=== PATIENT | female | born 2000 | race American Indian/Alaskan Native ===

== ENCOUNTER 2019-04-08 01:25 | Emergency (ER) | payer OTHER, SELFPAY ==
[2019-04-08 01:35] VITALS: BP 121/65; PULSE 98; RESP 16; TEMP 36.7; O2SAT 99; BMI 38.7
--- NOTE | 2019-04-08 01:44 | DI.US.S_ITS ---
PROCEDURE: US PELVIC COMPLETE INDICATIONS: RIGHT PELVIC PAIN TECHNIQUE: Real-time scanning was performed of the pelvic organs, with image documentation. Additional endovaginal scanning was necessary due to incomplete visualization of the adnexal and endometrial structures by transabdominal scanning. COMPARISON: None. FINDINGS: Transabdominal scanning: Limited scanning through the kidneys shows no hydronephrosis. No pathologic free abdominal or pelvic fluid. Endovaginal scanning: Uterus: Uterus is normal in size at 7.6 x 3.6 x 4.3 cm. The endometrium measures 7.6 mm in combined thickness. Ovaries: Right ovary measures 3.0 x 1.9 x 3.4 cm. There is a 1.2 x 1.2 x 1.4 cm mildly complex right adnexal cyst. Left ovary measures 2.8 x 2.0 x 1.6 cm. Left ovary is sonographically normal. IMPRESSION: 1. Uterus is sonographically normal. 2. Left ovary sonographically normal. 3. 1.2 x 1.2 x 1.4 mildly complex left adnexal cyst. Recommend follow ultrasound in 4-6 weeks to ensure resolution. Dictated by: Tonya Crisostomo MD, PhD on 04/08/2019 at 7:48 Approved by: Tonya Crisostomo MD, PhD on 04/08/2019 at 7:50
--- NOTE | 2019-04-08 01:48 | ED_ITS ---
HPI - Abdominal Pain General Chief Complaint: Abdominal Pain Stated Complaint: ABDOMINAL PAIN Time Seen by Provider: 04/08/19 01:28 Source: patient and family Mode of arrival: ambulatory Limitations: no limitations History of Present Illness HPI narrative: 18-year-old female nonsmoker, fully immunized with history of ovarian cyst presents with right lower quadrant pain off and on for the past week which has become much more severe tonight. Her pain is worse with motion and improves with rest. She denies radiation of the pain. She denies associated symptoms such as fever chills nor nausea, vomiting or diarrhea. She has had no dysuria, frequency or urgency. Her last period was the end of February complaint: abdominal pain Onset (ago): day(s) Pain Consistency: intermittent Location: RLQ Severity: moderate Quality: cramping and aching Radiation: none Migration to: no migration Relieving factors: rest Exacerbating factors: movement Associated symptoms: denies other symptoms Related Data Patient : No Home Medications Medication Instructions Recorded Confirmed [ CONTROL] #0 11/02/16 amitriptyline 10 mg OR HS #0 11/02/16 caffeine #0 11/02/16 Previous Rx's Medication Instructions Recorded meloxicam [Mobic] 7.5 mg PO BIDCC PRN #10 tab 11/03/16 prochlorperazine maleate 10 mg PO Q8HP PRN #5 tab 11/03/16 [Compazine] ketorolac 10 mg PO Q6H PRN #14 tab 04/08/19 Allergies Allergy/AdvReac Type Severity Reaction Status Date / Time TAPE Allergy Mild RASH Uncoded 11/28/17 12:23 Review of Systems Constitutional Denies chills, Denies fever(s), Denies lethargy and Denies weakness Eyes Denies change in vision, Denies eye discharge, Denies irritation and Denies loss of vision ENT Ears, Nose, Mouth, and Throat: Denies change in voice, Denies neck pain and Denies sore throat Cardiovascular Denies chest pain, Denies irregular heart rhythm, Denies lightheadedness, Denies palpitations, Denies dyspnea, Denies dyspnea on exertion and Denies orthopnea Respiratory Denies cough, Denies dyspnea, Denies dyspnea on exertion and Denies wheezing Gastrointestinal Gastrointestinal: Reports abdominal pain, Denies change in bowel habits, Denies diarrhea, Denies nausea and Denies vomiting Genitourinary Denies hematuria, Denies flank pain, Denies urinary incontinence and Denies urinary urgency Musculoskeletal Denies neck pain Integumentary/Breasts Denies pruritus, Denies erythema, Denies rash and Denies wounds Neurologic Denies confusion, Denies loss of vision and Denies weakness Psychiatric Denies anxiety, Denies confusion, Denies depression, Denies homicidal ideation and Denies suicidal ideation Endocrine Denies palpitations Hematologic/Lymphatic Denies easy bruising Allergic/Immunologic Denies wheezing PFSH Social History Smoking Status: Never smoker Social History Smoking Status: Never smoker Exam Narrative Exam Narrative: GENERAL: [18] year old patient appears stated age. Well- nourished, well-developed patient, in mild distress. HEAD: Atraumatic. Normocephalic. EYES: Pupils equal round and reactive. Extraocular motions intact. No scleral icterus. No injection or drainage. ENT: Nose without bleeding, purulent drainage. Throat without erythema, tonsillar hypertrophy or exudate. Airway patent. NECK: Trachea midline. Non tender CARDIOVASCULAR: Regular rate and rhythm without murmurs, gallops, or rubs. RESPIRATORY: Clear to auscultation. Breath sounds equal bilaterally. No wheezes, rales, or rhonchi. GASTROINTESTINAL: Abdomen soft, tender to palpation in right lower quadrant, n ondistended. EXTREMITIES: No edema or joint tenderness. BACK: Nontender without deformity or crepitance. No flank tenderness. NEURO: AOx3. SKIN: No rash or erythema of visible areas Initial Vital Signs Initial Vital Signs: Vital Signs Temperature 98.0 F 04/08/19 01:35 Pulse Rate 98 H 04/08/19 01:35 Respiratory Rate 16 04/08/19 01:35 Blood Pressure 121/65 04/08/19 01:35 Pulse Oximetry 99 04/08/19 01:35 Course Orders Ordered: ED Orders 04/08/19 01:33 Urine Microscopic Stat 04/08/19 01:44 US pelvic complete Stat 04/08/19 02:10 Basic Metabolic Panel Stat Complete Blood Count AUTO DIFF Stat 04/08/19 02:43 CT abdomen pelvis w con Stat Discontinued Medications Sodium Chloride (Normal Saline 0.9%) 1,000 mls @ 1,000 mls/hr IV BOLUS ONE Stop: 04/08/19 02:42 Last Infusion: 04/08/19 03:04 Dose: 0 mls/hr Admin: 04/08/19 02:00 Dose: 1,000 mls/hr Ketorolac Tromethamine (Toradol) 15 mg IV NOW ONE Stop: 04/08/19 01:44 Last Admin: 04/08/19 02:00 Dose: 15 mg Ondansetron HCl (Zofran) 4 mg IV NOW ONE Stop: 04/08/19 02:05 Last Admin: 04/08/19 02:06 Dose: 4 mg Reevaluation(s) Reevaluation #1: near complete resolution of symptoms after toradol Vital Signs - 8 hr 04/08/19 01:35 Temperature 98.0 F Pulse Rate 98 H Respiratory Rate 16 Blood Pressure 121/65 Pulse Oximetry 99 MDM - Abdominal Pain Lab Data Result diagrams: 04/08/19 02:10 04/08/19 02:10 Lab Results 04/08/19 04/08/19 04/08/19 Range/Units 01:33 02:10 02:10 WBC 16.8 H (4.5-11.0) X10^3/uL RBC 4.90 (4.0-5.2) X10^6/uL Hgb 12.7 (12.0-16.0) g/dL Hct 38.8 (36-46) % MCV 79.1 L (80-100) fL MCH 25.9 L (26-34) PG MCHC 32.8 (30-36) % RDW 14.0 (11.6-14.8) % Plt Count 284 (150-400) X10^3/uL Neut % (Auto) 76.3 H (50-75) % Lymph % (Auto) 16.0 L (25-40) % [place] % (Auto) 7.2 (3-14) % Eos % (Auto) 0.2 L (2-4) % Baso % (Auto) 0.3 (0-2) % Neut # (Auto) 91253 H (5299-6937) /uL Lymph # (Auto) 2700 (5325-1789) /uL [place] # (Auto) 1200 H (0-900) /uL Eos # (Auto) 0 (0-450) /uL Baso # (Auto) 0 (0-100) /uL Sodium 141 (137-145) mmol/L Potassium 4.0 (3.4-5.1) mmol/L Chloride 102 (98-107) mmol/L Carbon Dioxide 28 (22-32) mmol/L BUN 12 (7-17) mg/dL Creatinine 0.60 (0.52-1.04) mg/dL Estimated GFR > 60.0 (>60) mL/min BUN/Creatinine Ratio 20.0 (6-22) Glucose 111 H (70-100) mg/dL Calcium 9.5 (8.4-10.2) mg/dL Urine RBC 0-1/hpf (0-5/HPF) Urine WBC 1-5/hpf (0-5/HPF) Ur Squamous Epith Cells 5-10 /hpf H (0-5/HPF) Urine Bacteria Few (2-10) H (None) Urine Mucus 1+ H (Negative) Ur Culture Indicated? Cult not indicated Point of care testing: Point of Care Testing Test Results Negative Urine Dip Bedside Urine Glucose Negative Bedside Urine Bilirubin - Negative Bedside Urine Ketone ++ 40 Urine Specific [place] 1.030 Bedside Urine Occult Blood - Negative Bedside Urine pH 5.5 Bedside Urine Protein +/- 15 Bedside Urine Urobilinogen - Negative Bedside Urine Nitrite - Negative Bedside Urine Leukocytes +/- 15 Esterase Imaging Data US - abdomen: Radiologist's impression: R Ovarian cyst CT scan - abdomen: Radiologist's impression: 1.9 cm complex appearing cystic lesion right ovary with slight fluid posterior adnexa. Unremarkable appendix Discharge Plan Departure Patient Disposition: Home Clinical Impression: Ovarian cyst Qualifiers: Laterality: right Qualified Code(s): N83.201 - Unspecified ovarian cyst, right side Instructions: DI for Ovarian Cyst Activity Restrictions/Additional Instructions: *You have been diagnosed with [right lower quadrant pain, most likely from ovarian cyst] *What to do: *Take medications as directed *Follow up with your primary care provider in 2-3 days, call for an appointment. Let them know you were seen in the Emergency Department and that we ask that you be seen in follow up *Return to ER if you should have any new, worsening or concerning symptoms Prescriptions: New ketorolac 10 mg tablet 10 mg PO Q6H PRN (Reason: pain) Qty: 14 RF: 0 No Action caffeine 200 MG tablet Qty: 0 RF: 0 amitriptyline 25 MG tablet 10 mg OR HS Qty: 0 RF: 0 [ CONTROL] Qty: 0 RF: 0 prochlorperazine maleate [Compazine] 10 MG tablet 10 mg PO Q8HP PRNQty: 5 RF: 0 meloxicam [Mobic] 7.5 MG tablet 7.5 mg PO BIDCC PRNQty: 10 RF: 0 Referrals: Marion Londono PA-C [Primary Care Provider] -
[2019-04-08] MEDS: KETOROLAC 60 MG/2 ML VIAL 15 MG IV (02:00)
[2019-04-08] MEDS: SODIUM CHLORIDE 0.9% 1,000 ML 1000 ML IV (02:00)
[2019-04-08 02:04] LABS: Bacteria Urine Few (2-10); Culture Indicated Urine Cult Not Indicated; Mucus Urine 1+ (Negative); RBC Urine 0-1/HPF (0-5/HPF); Squamous Epithelial Cell Urine 5-10 /HPF (0-5/HPF); WBC Urine 1-5/HPF (0-5/HPF)
[2019-04-08] MEDS: ONDANSETRON 4 MG/2 ML INJ IV (02:06)
[2019-04-08 02:15] VITALS: BP 117/66; PULSE 81; RESP 16; O2SAT 98
[2019-04-08 02:28] LABS: Blood Urea Nitrogen 12 mg/dL (7-17); Calcium 9.5 mg/dL (8.4-10.2); Carbon Dioxide 28 mmol/L (22-32); Chloride 102 mmol/L (98-107); Estimated Glomerular Filt Rate > 60.0 mL/min (>60); Glucose 111 mg/dL (70-100); HEMOLYSIS < 15 (0-50); Sodium 141 mmol/L (137-145)
[2019-04-08 02:31] LABS: Add Manual Diff / Slide Review NO; Basophils Absolute Auto 0 /uL (0-100); Basophils Percent Auto 0.3 % (0-2); Eosinophils Absolute Auto 0 /uL (0-450); Eosinophils Percent Auto 0.2 % (2-4); Hematocrit 38.8 % (36-46); Hemoglobin 12.7 g/dL (12.0-16.0); Lymphocytes Absolute Auto 2700 /uL (1100-4500); Mean Corpuscular HGB Conc 32.8 % (30-36); Mean Corpuscular Hemoglobin 25.9 PG (26-34); Mean Corpuscular Volume 79.1 fL (80-100); Monocytes Absolute Auto 1200 /uL (0-900); Monocytes Percent Auto 7.2 % (3-14); Neutrophils Absolute Auto 12900 /uL (1500-7000); Neutrophils Percent Auto 76.3 % (50-75); Platelet Count 284 X10^3/uL (150-400); White Blood Cell Count 16.8 X10^3/uL (4.5-11.0)
--- NOTE | 2019-04-08 02:43 | DI.CT.S_ITS ---
PROCEDURE: CT ABDOMEN PELVIS W CON INDICATIONS: severe right lower quadrant pain, elevated White blood cell count TECHNIQUE: After the administration of intravenous contrast, 5 mm thick sections acquired from the diaphragm to the symphysis. 5 mm coronal and sagittal reformats were acquired. For radiation dose reduction, the following was used: automated exposure control, adjustment of mA and/or kV according to patient size. COMPARISON: None. FINDINGS: Image quality: Excellent. ABDOMEN: Lung bases: Lung bases are clear. Heart size is normal. Solid organs: Liver is normal in size and enhancement. Gallbladder is within normal limits. Biliary system is non dilated. Pancreas enhances normally. Spleen is normal in size and enhancement. No adrenal nodules. Kidneys demonstrate normal size and enhancement, without hydronephrosis. Peritoneum and bowel: Bowel loops demonstrate normal wall thickness and caliber. No free air. Trace free fluid noted in the pelvis adjacent to the right adnexa. The appendix is not definitely identified, however no free fluid or inflammatory changes are noted adjacent to the cecum. Nodes and vessels: No retroperitoneal or mesenteric adenopathy by size criteria. Aorta and inferior vena cava are normal in size. Miscellaneous: No ventral hernias. PELVIS: Genitourinary: Bladder wall is diffusely thickened which could be due to under distention versus a nonspecific cystitis. 2.5 x 1.8 cm complex right adnexal cyst. Miscellaneous: No inguinal hernias or adenopathy. Bones: No suspicious bony lesions. No vertebral body compression fractures. IMPRESSION: 1. 2.5 x 1.8 cm right adnexal cyst. 2. The appendix is not directly visualized. No free fluid or inflammatory changes noted adjacent to the cecum. 3. Diffuse urinary bladder wall thickening which could be due to under distention versus a nonspecific cystitis. Recommend correlation with urinalysis. Dictated by: Tonya Crisostomo MD, PhD on 04/08/2019 at 7:39 Approved by: Tonya Crisostomo MD, PhD on 04/08/2019 at 7:44
--- NOTE | 2019-04-08 03:04 | PC.NURSE ---
Patient feeling better, states pain is just numb. Nausea resolved. Returns from CT.
[2019-04-08 03:15] VITALS: BP 121/65; PULSE 95; RESP 16; TEMP 36.9; O2SAT 99
[2019-04-08 04:04] VITALS: BP 107/57; PULSE 84; RESP 16; TEMP 36.6; O2SAT 98
== END 2019-04-08 04:05 | disposition home or self-care (01) ==
PROVIDERS: Emergency Provider Emergency Medicine; Family Provider Physician Assistant; PCP Physician Assistant
DX: N83.201 Unspecified ovarian cyst, right side (principal)
CPT/HCPCS: 36415; 74177; 76830; 76856; 80048; 81003; 81015; 81025; 85025; 96361; 96374; 96375; 99283; 99285; J1885; J2405; Q9967

== ENCOUNTER 2023-09-20 06:41 | Emergency (ER) | payer OTHER, SELFPAY ==
[2023-09-20 06:48] VITALS: BP 136/95; PULSE 75; RESP 16; TEMP 36.6; O2SAT 96; BMI 46.3
--- NOTE | 2023-09-20 07:09 | ED_ITS ---
HPI - General Adult General Chief complaint: Urogenital-Female Stated complaint: something in weird place that keeps growing Time Seen by Provider: 09/20/23 07:02 Source: patient Mode of arrival: Ambulatory History of Present Illness HPI narrative: 22-year-old female who is here for evaluation of a mass and swelling to her labia. She states it has been there for the past 5-6 days. Somewhat tender to palpation. Is red. No drainage. She has never had anything like this before although she has had similar symptoms on her inner thighs. She states they have always got to the point where they have drained on their own. No fevers. No urinary symptoms. No vaginal bleeding. Related Data Home Medications Medication Instructions Recorded Confirmed [ CONTROL] ##0 11/02/16 amitriptyline 25 mg tablet 10 mg OR HS ##0 11/02/16 caffeine 200 mg tablet ##0 11/02/16 Previous Rx's Medication Instructions Recorded meloxicam 7.5 mg tablet (Mobic) 7.5 mg PO BIDCC PRN #10 tabs 11/03/16 prochlorperazine maleate 10 mg 10 mg PO Q8HP PRN #5 tabs 11/03/16 tablet (Compazine) ketorolac 10 mg tablet 10 mg PO Q6H PRN pain #14 tabs 04/08/19 Allergies Allergy/AdvReac Type Severity Reaction Status Date / Time TAPE Allergy Mild RASH Uncoded 11/28/17 12:23 Review of Systems Constitutional Constitutional: Reports system reviewed and no additional complaints, except as documented Gastrointestinal Gastrointestinal: Reports system reviewed and no additional complaints, except as documented Genitourinary Genitourinary: Reports system reviewed and no additional complaints, except as documented Integumentary/Breasts Skin/Breast: Reports system reviewed and no additional complaints, except as documented Patient History Social History Smoking Status: Never smoker Smoking Status: Never smoker alcohol intake frequency: holidays/special occasions only Substance Use Type: does not use Exam Initial Vital Signs Initial Vital Signs: Vital Signs Temperature 97.8 F 09/20/23 06:48 Pulse Rate 75 09/20/23 06:48 Respiratory Rate 16 09/20/23 06:48 Blood Pressure 136/95 H 09/20/23 06:48 Pulse Oximetry 96 02/01/24 06:48 Oxygen Delivery Method Room Air 09/20/23 06:48 Other: 2 cm x 2 cm area of induration along the left labia majora. No pustules noted. No vesicles noted. Skin General: no rashes or lesions noted Procedures Abscess I/D I&D #1: Site: other (Left labia) Side (if applicable): left Local Anesthetic: lidocaine 1% Amount of anesthesia used (mL): 2 Technique: incised with #11 blade Irrigation: No Packing used?: none Course Orders Ordered: ED Orders 09/20/23 06:54 Consult to INSPECTOR AND HAND PACKAGER - Forms Analyst Stat Discontinued Medications Lidocaine HCl (Lidocaine 2% Inj Sdv 5ml) 5 ml INJ INTRA-OP ONE Stop: 09/20/23 07:28 Last Admin: 09/20/23 07:30 Dose: 5 ml Documented By: Lidocaine/Epinephrine (Lidocaine 2% W/Epi Inj) 20 ml INJ INTRA-OP ONE Stop: 09/20/23 07:27 Vital Signs Vital signs: Vital Signs - 8 hr 09/20/23 06:48 Temperature 97.8 F Pulse Rate 75 Respiratory Rate 16 Blood Pressure 136/95 H Pulse Oximetry 96 Oxygen Delivery Method Room Air Medical Decision Making MDM Narrative Medical decision making narrative: There was a area of induration along the left labia majora. It did not involve intravaginal areas. There was no overlying skin areas. Discussed that this potentially could be a cyst versus an abscess. We discussed watching and waiting to see if her symptoms progress or resolve on its own versus doing an incision and drainage. There was a bedside ultrasound that did show a fluid collection. I am confident that I did enter the cavity however only clear fluid returned. There was no purulent material. Informed the patient that this maybe a cyst in it may return on its own and she may need to follow-up with advisor advocate [employer] for removal. Patient was given care instructions and return precautions. She expressed understanding and agreement. Discharge Plan Departure Patient Disposition: Home Clinical Impression: Skin lesion Instructions: DI for Incision and Drainage Activity Restrictions/Additional Instructions: You can shower like normal. You can use soap and water like normal. Anticipate drainage from the area for the next day or so. You may need to put gauze over the area or even wear a pad. If symptoms worsen you do need to be re-evaluated and if they return you may need to be evaluated by Gynecology. Prescriptions: No Action caffeine 200 MG tablet Qty: 0 amitriptyline 25 MG tablet 10 mg OR HS Qty: 0 [ CONTROL] Qty: 0 prochlorperazine maleate [Compazine] 10 MG tablet 10 mg PO Q8HP PRNQty: 5 0RF meloxicam [Mobic] 7.5 MG tablet 7.5 mg PO BIDCC PRNQty: 10 0RF ketorolac 10 mg tablet 10 mg PO Q6H PRN (Reason: pain) Qty: 14 0RF Referrals: Marion Londono PA-C [Primary Care Provider] - Stand Alone Forms: Patient Portal/API
[2023-09-20] MEDS: LIDOCAINE 2% INJ SDV 5ML 5 ML INJ (07:30)
[2023-09-20 07:49] VITALS: BP 151/88; PULSE 88; RESP 16; O2SAT 98
[2023-09-20 08:30] VITALS: BP 178/86; PULSE 79; RESP 17; O2SAT 97
== END 2023-09-20 08:29 | disposition home or self-care (01) ==
PROVIDERS: Emergency Provider Emergency Medicine; Family Provider Physician Assistant; PCP Physician Assistant
DX: L98.9 Disorder of the skin and subcutaneous tissue, unspecified (principal)
CPT/HCPCS: 10060; 99283